=== PATIENT | female | born 1965 | race Caucasian/White ===

== ENCOUNTER 2016-05-23 15:13 | Emergency (ER) | payer OTHER ==
[~2016-05-23] VITALS: Ht 165.1 cm; Wt 75.0 kg
[~2016-05-23 15:13] MED LIST: GABAPENTIN; SEROQUEL; TRAMADOL; TRAZODONE; XANAX
[2016-05-23 20:30] VITALS: BP 102/61
[2016-05-23 20:42] LABS: BASOPHILS % 1.2 % (0.0-2.0); HEMATOCRIT. 43.9 % (36.0-48.0); HEMOGLOBIN. 14.9 g/dL (12.0-16.0); LYMPHOCYTES % 26.2 % (20.0-50.0); MEAN CORPUSCULAR HEMOGLOBIN 33.4 pg (28.0-32.0); MEAN CORPUSCULAR VOLUME 98.4 fL (81.0-99.0); MONOCYTES % 10.5 % (2.0-8.0); NEUTROPHILS % 59.1 % (40.0-76.0); PLATELET 373 x1000/uL (130-400); RED BLOOD CELL COUNT 4.46 mill/uL (4.2-5.4); RED CELL DISTRIBUTION WIDTH 15.1 % (11.6-14.6); WHITE BLOOD COUNT 7.7 x1000/uL (4.5-11.0)
[2016-05-23 20:47] LABS: CHLORIDE 108 mEq/L (98-107); INDEX HEMOLYSI 1 (1-3); INDEX ICTERIC 1 (1-4); INDEX LIPEMIC 1 (1-3)
[2016-05-23 20:50] LABS: ALBUMIN 3.5 g/dL (3.4-5.0); ANION GAP 9; CARBON DIOXIDE 28 mEq/L (21-32); UREA NITROGEN BLOOD 11 mg/dL (7-21)
[2016-05-23 20:54] LABS: ALANINE AMINOTRANSFERASE 14 IU/L (13-61); eGFR > 60 mL/min (>60)
== END 2016-05-23 22:25 | disposition home or self-care (01) ==
LOC: ER 16:55
DX: F33.3 Major depressive disorder, recurrent, severe with psychotic symptoms (principal); I69.354 Hemiplegia and hemiparesis following cerebral infarction affecting left non-dominant side; Z86.79 Personal history of other diseases of the circulatory system; F17.210 Nicotine dependence, cigarettes, uncomplicated; M79.7 Fibromyalgia; F41.9 Anxiety disorder, unspecified
CPT/HCPCS: 36415; 80053; 81025; 85025; 99284; G0482

== ENCOUNTER 2016-07-06 18:12 | Emergency (ER) | payer OTHER | END 2016-07-06 19:00 | disposition left against medical advice (07) | LOC: ER 18:16 | DX: M79.673 Pain in unspecified foot (principal); Z53.21 Procedure and treatment not carried out due to patient leaving prior to being seen by health care provider ==

== ENCOUNTER 2016-07-26 16:01 | Emergency (ER) | payer OTHER ==
[~2016-07-26] VITALS: Ht 162.6 cm; Wt 80.0 kg
[2016-07-26] MEDS ORDERED: PREGABALIN 50 MG CAPSULE PO STA (16:37)
[2016-07-26] MEDS ORDERED: PREGABALIN 25MG CAPSULE PO ONE (16:45)
[2016-07-26 17:05] LABS: BASOPHILS % 0.4 % (0.0-2.0); EOSINOPHILS % 1.5 % (0.0-5.0); HEMATOCRIT. 43.3 % (36.0-48.0); HEMOGLOBIN. 14.9 g/dL (12.0-16.0); LYMPHOCYTES % 15.2 % (20.0-50.0); MEAN CORPUSCULAR HEMOGLOBIN 32.8 pg (28.0-32.0); MEAN CORPUSCULAR HGB CONC 34.5 g/dL (31.0-37.0); MEAN CORPUSCULAR VOLUME 94.9 fL (81.0-99.0); MONOCYTES % 9.3 % (2.0-8.0); NEUTROPHILS % 73.6 % (40.0-76.0); PLATELET 330 x1000/uL (130-400); RED BLOOD CELL COUNT 4.56 mill/uL (4.2-5.4); RED CELL DISTRIBUTION WIDTH 15.6 % (11.6-14.6); WHITE BLOOD COUNT 8.3 x1000/uL (4.5-11.0)
[2016-07-26 17:07] LABS: PROTHROMBIN TIME 10.6 sec
[2016-07-26 17:10] LABS: ANION GAP 15; CALCIUM 8.7 mg/dL (8.5-10.1); CARBON DIOXIDE 25 mEq/L (21-32); CHLORIDE 107 mEq/L (98-107); INDEX HEMOLYSI 1 (1-3); INDEX ICTERIC 1 (1-4); INDEX LIPEMIC 1 (1-3); UREA NITROGEN BLOOD 12 mg/dL (7-21); eGFR > 60 mL/min (>60)
[2016-07-26 21:00] VITALS: BP 106/58
== END 2016-07-26 21:05 | disposition home or self-care (01) ==
LOC: ER 16:02
DX: S70.02XA Contusion of left hip, initial encounter (principal); R10.30 Lower abdominal pain, unspecified; R03.0 Elevated blood-pressure reading, without diagnosis of hypertension; W01.0XXA Fall on same level from slipping, tripping and stumbling without subsequent striking against object, initial encounter; Y93.89 Activity, other specified; I69.354 Hemiplegia and hemiparesis following cerebral infarction affecting left non-dominant side; Y92.89 Other specified places as the place of occurrence of the external cause; M79.7 Fibromyalgia
CPT/HCPCS: 36415; 51702; 73502; 80048; 85025; 85610; 99285; A4315

== ENCOUNTER 2016-08-06 10:20 | Emergency (ER) | payer OTHER ==
[~2016-08-06] VITALS: Ht 162.6 cm; Wt 91.0 kg
[2016-08-06 11:54] LABS: BASOPHILS % 0.5 % (0.0-2.0); EOSINOPHILS % 0.7 % (0.0-5.0); HEMATOCRIT. 44.4 % (36.0-48.0); HEMOGLOBIN. 15.4 g/dL (12.0-16.0); LYMPHOCYTES % 12.9 % (20.0-50.0); MEAN CORPUSCULAR HGB CONC 34.6 g/dL (31.0-37.0); MEAN CORPUSCULAR VOLUME 95.5 fL (81.0-99.0); MEAN PLATELET VOLUME 7.3 fl (7.4-10.4); MONOCYTES % 9.6 % (2.0-8.0); NEUTROPHILS % 76.3 % (40.0-76.0); PLATELET 347 x1000/uL (130-400); RED BLOOD CELL COUNT 4.65 mill/uL (4.2-5.4); RED CELL DISTRIBUTION WIDTH 15.8 % (11.6-14.6); WHITE BLOOD COUNT 7.4 x1000/uL (4.5-11.0)
[2016-08-06 12:03] LABS: PARTIAL THROMBOPLASTIN TIME 28.8 sec (24.0-34.0); PROTHROMBIN TIME 10.8 sec
[2016-08-06 12:05] LABS: ALANINE AMINOTRANSFERASE 20 IU/L (13-61); ALBUMIN 3.4 g/dL (3.4-5.0); ANION GAP 11; CALCIUM 8.5 mg/dL (8.5-10.1); CARBON DIOXIDE 27 mEq/L (21-32); CHLORIDE 108 mEq/L (98-107); ETHANOL BLOOD < 10 mg/dL; INDEX HEMOLYSI 1 (1-3); INDEX ICTERIC 1 (1-4); INDEX LIPEMIC 1 (1-3); LIPASE 77 IU/L (73-393); UREA NITROGEN BLOOD 12 mg/dL (7-21)
[2016-08-06 12:10] LABS: TROPONIN I < 0.02 ng/mL (0.00-0.04); eGFR > 60 mL/min (>60)
[2016-08-06] MEDS ORDERED: KETOROLAC 60MG/2ML VIAL IM ONE (14:30)
[2016-08-06] MEDS ORDERED: PREGABALIN 50 MG CAPSULE PO SCH (15:15)
[2016-08-06 15:20] VITALS: BP 128/72
== END 2016-08-06 16:27 | disposition home or self-care (01) ==
LOC: ER 10:21
DX: R07.9 Chest pain, unspecified (principal); I50.9 Heart failure, unspecified; F17.210 Nicotine dependence, cigarettes, uncomplicated; Z79.1 Long term (current) use of non-steroidal anti-inflammatories (NSAID); Z79.899 Other long term (current) drug therapy; Z86.73 Personal history of transient ischemic attack (TIA), and cerebral infarction without residual deficits
CPT/HCPCS: 36415; 71010; 80053; 80301; 83690; 84484; 85025; 85610; 85730; 93005; 96372; 99285; G0482; J1885; Z7610

== ENCOUNTER 2016-08-10 16:49 | Emergency (ER) | payer OTHER | END 2016-08-10 18:36 | disposition left against medical advice (07) | LOC: ER 18:23 | DX: M25.559 Pain in unspecified hip (principal); Z53.21 Procedure and treatment not carried out due to patient leaving prior to being seen by health care provider ==

== ENCOUNTER 2017-04-06 21:13 | Observation (INO) | payer OTHER, MEDICAID ==
[~2017-04-06] VITALS: Ht 162.6 cm; Wt 68.0 kg
[2017-04-06] MEDS ORDERED: SODIUM CHLORIDE 0.9% 1,000 ML IV ONE (22:57)
[2017-04-06 23:35] LABS: BASOPHILS % 0.3 % (0.0-2.0); EOSINOPHILS % 0.1 % (0.0-5.0); HEMATOCRIT. 47.4 % (36.0-48.0); HEMOGLOBIN. 16.3 g/dL (12.0-16.0); LYMPHOCYTES % 8.7 % (20.0-50.0); MEAN CORPUSCULAR HEMOGLOBIN 32.8 pg (28.0-32.0); MEAN CORPUSCULAR VOLUME 95.4 fL (81.0-99.0); MEAN PLATELET VOLUME 7.3 fl (7.4-10.4); MONOCYTES % 5.2 % (2.0-8.0); NEUTROPHILS % 85.7 % (40.0-76.0); PLATELET 400 x1000/uL (130-400); RED BLOOD CELL COUNT 4.97 mill/uL (4.2-5.4); RED CELL DISTRIBUTION WIDTH 13.3 % (11.6-14.6)
[2017-04-06 23:53] LABS: CHLORIDE 107 mEq/L (98-107); ETHANOL BLOOD < 10 mg/dL
[2017-04-07 01:04] LABS: CLARITY URINE CLEAR (CLEAR); COLOR URINE YELLOW (YELLOW); KETONES URINE NEGATIVE (NEGATIVE); LEUKOCYTE ESTERASE URINE 1+ (NEGATIVE); NITRITE URINE POSITIVE (NEGATIVE); OCCULT BLOOD URINE NEGATIVE (NEGATIVE); PH URINE 6.5 (4.5-8.0); PROTEIN URINE NEGATIVE (NEGATIVE); SPECIFIC GRAVITY URINE 1.023 (1.005-1.030); UROBILINOGEN URINE 0.2 E.U./dL (0.2-1.0)
[2017-04-07 01:24] LABS: *AMPHETAMINES SCREEN URINE NEGATIVE (NEGATIVE); *COCAINE SCREEN URINE PRESUMTIVE POSITIVE (NEGATIVE); CANNABINOID URINE SCREEN PRESUMTIVE POSITIVE (NEGATIVE); METHADONE URINE SCREEN NEGATIVE (NEGATIVE); OPIATES URINE SCREEN PRESUMTIVE POSITIVE (NEGATIVE); PHENCYCLIDINE URINE SCREEN NEGATIVE (NEGATIVE)
[2017-04-07 01:37] LABS: *BENZODIAZEPINES SCREEN URINE NEGATIVE (NEGATIVE)
[2017-04-07 01:51] LABS: *BARBITURATES SCREEN URINE NEGATIVE (NEGATIVE)
[2017-04-07] MEDS ORDERED: SODIUM CHLORIDE 0.9% 1,000 ML IV SCH (02:23)
[2017-04-07 03:40] VITALS: BP 103/66
[2017-04-07] MEDS: DEXT 5%/0.9% NACL 1,000 ML IV SCH ×2 (05:53→15:41)
[2017-04-07 08:00] VITALS: BP 109/70
[2017-04-07] MEDS ORDERED: ENOXAPARIN 40MG/0.4ML SYR SUBCUT SCH (09:00)
[2017-04-07 09:06] LABS: CREATINE KINASE 68 IU/L (26-192); CREATINE KINASE MB FRACTION 1.3 ng/mL (0.5-3.6); TROPONIN I < 0.02 ng/mL (0.00-0.04)
[2017-04-07 12:00] VITALS: BP 86/53
[2017-04-07] MEDS ORDERED: PREGABALIN 75MG CAPSULE PO SCH (15:15)
[2017-04-07 16:00] VITALS: BP 104/65
[2017-04-07 17:41] VITALS: BP 104/65
[2017-04-07 17:49] LABS: CREATINE KINASE 61 IU/L (26-192); CREATINE KINASE MB FRACTION 0.6 ng/mL (0.5-3.6); TROPONIN I < 0.02 ng/mL (0.00-0.04)
== END 2017-04-07 20:17 ==
LOC: ER 21:28 → EDBEDREQ 04-07 01:30 → ENRESERV 04-07 02:19 → 7WST 04-07 02:27 → INTOOBSV 04-07 02:27 → EDBEDREQTM 04-07 02:40 → EDBEDREQDT 04-07 02:40 → EDBEDREQ 04-07 02:40
PROVIDERS: ADMIT Internal Medicine; ATTEND Internal Medicine
DX: R53.1 Weakness (principal); F32.9 Major depressive disorder, single episode, unspecified; N39.0 Urinary tract infection, site not specified; F19.10 Other psychoactive substance abuse, uncomplicated; G47.00 Insomnia, unspecified; Z86.73 Personal history of transient ischemic attack (TIA), and cerebral infarction without residual deficits; E78.00 Pure hypercholesterolemia, unspecified; E03.9 Hypothyroidism, unspecified; F17.200 Nicotine dependence, unspecified, uncomplicated
CPT/HCPCS: 36415; 51702; 70450; 70551; 71045; 72141; 80053; 80305; 81001; 82550; 82553; 84484; 85025; 93005; 96360; 96361; 99291; G0378; G0482; J7030; J7042; A4315

== ENCOUNTER 2017-09-25 18:24 | Emergency (ER) | payer OTHER, MEDICAID ==
[~2017-09-25] VITALS: Ht 162.6 cm; Wt 80.0 kg
[~2017-09-25 18:24] MED LIST changes: +AM10 PO; +ASPI-1160 PO; +ATOR10TA PO; +BUPR100T4 PO; +FURO-152 PO; +LEVO25TA7 PO; +LOSA25TA12 PO; +METR250T PO; +OLAN5TAB26 PO; +PREG50CA PO
[2017-09-25] MEDS ORDERED: DIAZEPAM 5 MG TABLET PO ONE (21:15)
[2017-09-25] MEDS ORDERED: KETOROLAC 60MG/2ML VIAL IM ONE (21:15)
[2017-09-25 23:56] VITALS: BP 106/60
== END 2017-09-25 23:57 | disposition home or self-care (01) ==
LOC: ER 18:24
DX: M43.6 Torticollis (principal); I10 Essential (primary) hypertension; E78.00 Pure hypercholesterolemia, unspecified; E03.9 Hypothyroidism, unspecified; F12.10 Cannabis abuse, uncomplicated; Z86.73 Personal history of transient ischemic attack (TIA), and cerebral infarction without residual deficits; Z79.82 Long term (current) use of aspirin
CPT/HCPCS: 72125; 96372; 99284; J1885

== ENCOUNTER 2022-06-02 08:00 | Inpatient (IN) | payer BC, MEDICAID ==
[~2022-06-02] VITALS: Ht 152.4 cm; Wt 101.2 kg
[~2022-06-02 08:00] MED LIST changes: -AM10 PO; +AMIT10TA7 PO; -LOSA25TA12 PO; +LOSA25TA26 PO; -OLAN5TAB26 PO; +OLAN5TAB74 PO
[2022-06-02 09:07] LABS: BASOPHILS % 0.6 % (0.0-2.0); EOSINOPHILS % 1.6 % (0.0-5.0); HEMATOCRIT. 50.4 % (36.0-48.0); HEMOGLOBIN. 17.3 g/dL (12.0-16.0); LYMPHOCYTES % 18.2 % (20.0-50.0); MEAN CORPUSCULAR HEMOGLOBIN 31.6 pg (28.0-32.0); MEAN PLATELET VOLUME 7.4 fl (7.4-10.4); MONOCYTES % 11.7 % (2.0-8.0); NEUTROPHILS % 67.9 % (40.0-76.0); PLATELET 487 x1000/uL (130-400); RED BLOOD CELL COUNT 5.48 mill/uL (4.2-5.4)
[2022-06-02 09:17] LABS: CHLORIDE 105 mEq/L (98-107)
[2022-06-02 09:21] LABS: D-DIMER 0.2 mg/L FEU (<0.50); PARTIAL THROMBOPLASTIN TIME 34.4 sec (23.4-31.0); PROTHROMBIN TIME 10.9 sec (9.6-11.0)
[2022-06-02] MEDS ORDERED: ACETAMINOPHEN 325MG TABLET PO NR (10:00)
[2022-06-02] MEDS ORDERED: SODIUM CHLORIDE 0.9% 1,000 ML IV ONE (10:00)
[2022-06-02] MEDS ORDERED: MORPHINE SULFATE 2 MG/ML CPJ (NOT FOR IM USE) IV NR (10:15)
[2022-06-02] MEDS ORDERED: IPRATROPIUM/ALBUTEROL 0.5-3(2.5)MG/3ML NEB HHN PRN (13:45)
[2022-06-02] MEDS ORDERED: ACETAMINOPHEN 325MG TABLET PO PRN (13:45)
[2022-06-02] MEDS ORDERED: CLONIDINE 0.1MG TABLET PO PRN (13:45)
[2022-06-02] MEDS ORDERED: ONDANSETRON HCL 4MG/2ML INJ IV PRN (13:45)
[2022-06-02] MEDS ORDERED: DIPHENHYDRAMINE 50MG/ML VIAL IV PRN (13:45)
[2022-06-02] MEDS: SODIUM CHLORIDE 0.9% 1,000 ML IV SCH (13:45)
[2022-06-02 14:14] LABS: CLARITY URINE CLEAR (CLEAR); COLOR URINE YELLOW (YELLOW); KETONES URINE 3+ (NEGATIVE); LEUKOCYTE ESTERASE URINE TRACE (NEGATIVE); NITRITE URINE POSITIVE (NEGATIVE); OCCULT BLOOD URINE NEGATIVE (NEGATIVE); PH URINE 7.5 (4.5-8.0); PROTEIN URINE NEGATIVE (NEGATIVE); SPECIFIC GRAVITY URINE 1.015 (1.005-1.030)
[2022-06-02 14:20] VITALS: BP 140/86
[2022-06-02 14:39] LABS: *AMPHETAMINES SCREEN URINE NEGATIVE (NEGATIVE); *BARBITURATES SCREEN URINE NEGATIVE (NEGATIVE); *BENZODIAZEPINES SCREEN URINE NEGATIVE (NEGATIVE); *COCAINE SCREEN URINE NEGATIVE (NEGATIVE); CANNABINOID URINE SCREEN NEGATIVE (NEGATIVE); METHADONE URINE SCREEN NEGATIVE (NEGATIVE); OPIATES URINE SCREEN PRESUMTIVE POSITIVE (NEGATIVE); PHENCYCLIDINE URINE SCREEN NEGATIVE (NEGATIVE)
[2022-06-02] MEDS: MORPHINE SULFATE 2 MG/ML CPJ (NOT FOR IM USE) IV PRN ×3 (16:01→23:58)
[2022-06-02] MEDS ORDERED: ALBUTEROL (0.083%) 2.5MG/3ML NEB HHN PRN (16:30)
[2022-06-02] MEDS ORDERED: IPRATROPIUM BROMIDE (0.02%) 0.5MG/2.5ML NEB HHN PRN (16:30)
[2022-06-02] MEDS ORDERED: TRAZ-251 MT (17:07)
[2022-06-02] MEDS ORDERED: LEVO25TA7 MT (17:07)
[2022-06-02] MEDS ORDERED: RIVA10TA MT (17:07)
[2022-06-02 17:27] VITALS: BP 140/86
[2022-06-02] MEDS ORDERED: CEFTRIAXONE 1GM PREMIX 50 ML IV SCH (18:00)
[2022-06-02] MEDS: CEFTRIAXONE 1GM PREMIX 50 ML IV SCH (18:35)
[2022-06-02 20:00] VITALS: BP 123/69
[2022-06-02] MEDS: ENOXAPARIN 30MG/0.3ML SYR SUBCUT SCH (20:08)
[2022-06-03 00:13] VITALS: BP 126/96
[2022-06-03] MEDS: MORPHINE SULFATE 2 MG/ML CPJ (NOT FOR IM USE) IV PRN ×4 (04:27→20:57)
[2022-06-03 04:30] VITALS: BP 124/69
[2022-06-03 07:53] VITALS: BP 129/75
[2022-06-03] MEDS: ENOXAPARIN 30MG/0.3ML SYR SUBCUT SCH ×2 (09:41→20:48)
[2022-06-03] MEDS: SODIUM CHLORIDE 0.9% 1,000 ML IV SCH ×3 (11:21→20:49)
[2022-06-03 11:43] VITALS: BP 111/76
[2022-06-03 13:39] LABS: CHLORIDE 107 mEq/L (98-107)
[2022-06-03 13:46] LABS: AMYLASE 51 IU/L (25-115)
[2022-06-03 16:05] VITALS: BP 135/82
[2022-06-03] MEDS: CEFTRIAXONE 1GM PREMIX 50 ML IV SCH (17:59)
[2022-06-03] MEDS ORDERED: NALOXONE HCL 0.4MG/ML VIAL IV PRN (18:00)
[2022-06-03 20:30] VITALS: BP 110/82
[2022-06-03] MEDS ORDERED: IPRATROPIUM/ALBUTEROL 0.5-3(2.5)MG/3ML NEB HHN SCH (22:00)
[2022-06-04] VITALS: BP 147/80
[2022-06-04] MEDS: MORPHINE SULFATE 2 MG/ML CPJ (NOT FOR IM USE) IV PRN ×5 (00:52→21:37)
[2022-06-04 04:00] VITALS: BP 125/75
[2022-06-04] MEDS: SODIUM CHLORIDE 0.9% 1,000 ML IV SCH ×2 (05:45→15:45)
[2022-06-04 05:48] LABS: BASOPHILS % 0.6 % (0.0-2.0); EOSINOPHILS % 2.8 % (0.0-5.0); HEMATOCRIT. 46.9 % (36.0-48.0); HEMOGLOBIN. 16.1 g/dL (12.0-16.0); LYMPHOCYTES % 21.5 % (20.0-50.0); MEAN CORPUSCULAR HEMOGLOBIN 31.9 pg (28.0-32.0); MEAN CORPUSCULAR VOLUME 92.7 fL (81.0-99.0); MEAN PLATELET VOLUME 7.8 fl (7.4-10.4); MONOCYTES % 14.5 % (2.0-8.0); NEUTROPHILS % 60.6 % (40.0-76.0); PLATELET 353 x1000/uL (130-400); RED BLOOD CELL COUNT 5.06 mill/uL (4.2-5.4); RED CELL DISTRIBUTION WIDTH 13.2 % (11.6-14.6)
[2022-06-04 08:00] VITALS: BP 135/76
[2022-06-04] MEDS: ENOXAPARIN 30MG/0.3ML SYR SUBCUT SCH ×2 (09:00→20:45)
[2022-06-04 12:00] VITALS: BP 130/75
[2022-06-04] MEDS ORDERED: LACTULOSE 20G/30ML UDC PO NR (14:00)
[2022-06-04 16:00] VITALS: BP 132/75
[2022-06-04] MEDS: DOCUSATE SODIUM 250MG CAPSULE PO SCH ×2 (17:25→17:27)
[2022-06-04] MEDS ORDERED: CEFTRIAXONE 1GM PREMIX 50 ML IV SCH (18:00)
[2022-06-04 20:00] VITALS: BP 141/83
[2022-06-04] MEDS: CEFTRIAXONE 1GM PREMIX 50 ML IV SCH (20:45)
[2022-06-05] VITALS: BP 152/97
[2022-06-05] MEDS: MORPHINE SULFATE 2 MG/ML CPJ (NOT FOR IM USE) IV PRN ×5 (01:30→21:45)
[2022-06-05] MEDS: SODIUM CHLORIDE 0.9% 1,000 ML IV SCH ×3 (02:39→21:45)
[2022-06-05 04:05] VITALS: BP 143/83
[2022-06-05 07:01] LABS: HEMATOCRIT. 46.5 % (36.0-48.0); MEAN CORPUSCULAR HEMOGLOBIN 31.5 pg (28.0-32.0); MEAN CORPUSCULAR VOLUME 91.9 fL (81.0-99.0); MEAN PLATELET VOLUME 7.8 fl (7.4-10.4); PLATELET 351 x1000/uL (130-400); RED BLOOD CELL COUNT 5.06 mill/uL (4.2-5.4); RED CELL DISTRIBUTION WIDTH 13.4 % (11.6-14.6)
[2022-06-05 07:52] LABS: CHLORIDE 107 mEq/L (98-107)
[2022-06-05 08:00] VITALS: BP 142/77
[2022-06-05] MEDS: POLYETHYLENE GLYCOL 3350 (17GM) 1 DOSE PACK PO SCH (08:48)
[2022-06-05] MEDS: DOCUSATE SODIUM 250MG CAPSULE PO SCH ×2 (08:48→16:14)
[2022-06-05] MEDS: ENOXAPARIN 30MG/0.3ML SYR SUBCUT SCH ×2 (08:49→21:46)
[2022-06-05 12:00] VITALS: BP 120/78
[2022-06-05 12:38] LABS: PLATELET ESTIMATE NORMAL
[2022-06-05 16:00] VITALS: BP 144/84
[2022-06-05 20:00] VITALS: BP 139/88
[2022-06-05] MEDS ORDERED: ALBUTEROL (0.083%) 2.5MG/3ML NEB HHN SCH (22:00)
[2022-06-05] MEDS ORDERED: IPRATROPIUM BROMIDE (0.02%) 0.5MG/2.5ML NEB HHN SCH (22:00)
[2022-06-05] MEDS: CEFTRIAXONE 1GM PREMIX 50 ML IV SCH (22:11)
[2022-06-06] VITALS: BP 148/82
[2022-06-06] MEDS: MORPHINE SULFATE 2 MG/ML CPJ (NOT FOR IM USE) IV PRN ×4 (01:33→16:41)
[2022-06-06 04:00] VITALS: BP 145/66
[2022-06-06 08:00] VITALS: BP 134/79
[2022-06-06] MEDS: DOCUSATE SODIUM 250MG CAPSULE PO SCH ×2 (09:49→16:41)
[2022-06-06] MEDS: SODIUM CHLORIDE 0.9% 1,000 ML IV SCH ×2 (09:49→16:41)
[2022-06-06] MEDS: POLYETHYLENE GLYCOL 3350 (17GM) 1 DOSE PACK PO SCH (09:50)
[2022-06-06] MEDS: ENOXAPARIN 30MG/0.3ML SYR SUBCUT SCH ×2 (09:50→21:02)
[2022-06-06 12:00] VITALS: BP 131/78
[2022-06-06] MEDS ORDERED: POTASSIUM CHLORIDE 20MEQ/PACKET PO NR (12:15)
[2022-06-06 16:00] VITALS: BP 124/68
[2022-06-06 20:00] VITALS: BP 138/76
[2022-06-07] MEDS: SODIUM CHLORIDE 0.9% 1,000 ML IV SCH ×3 (03:45→15:04)
[2022-06-07 04:00] VITALS: BP 119/65
[2022-06-07] MEDS: MORPHINE SULFATE 2 MG/ML CPJ (NOT FOR IM USE) IV PRN ×2 (05:27→10:35)
[2022-06-07] MEDS: POLYETHYLENE GLYCOL 3350 (17GM) 1 DOSE PACK PO SCH ×2 (09:00→10:34)
[2022-06-07] MEDS: DOCUSATE SODIUM 250MG CAPSULE PO SCH ×2 (09:00→17:00)
[2022-06-07] MEDS: ENOXAPARIN 30MG/0.3ML SYR SUBCUT SCH ×2 (10:34→20:15)
[2022-06-07 12:00] VITALS: BP 138/80
[2022-06-07] MEDS: HYDROCODONE/ACETAMINOPHEN 5/325MG TABLET PO PRN ×2 (15:13→20:40)
[2022-06-07 16:00] VITALS: BP 130/75
[2022-06-07 20:00] VITALS: BP 132/74
[2022-06-08] MEDS: SODIUM CHLORIDE 0.9% 1,000 ML IV SCH ×2 (01:19→10:48)
[2022-06-08] MEDS: HYDROCODONE/ACETAMINOPHEN 5/325MG TABLET PO PRN ×3 (02:35→20:13)
[2022-06-08 04:00] VITALS: BP 124/87
[2022-06-08 08:00] VITALS: BP 129/90
[2022-06-08] MEDS: POLYETHYLENE GLYCOL 3350 (17GM) 1 DOSE PACK PO SCH (09:00)
[2022-06-08] MEDS: DOCUSATE SODIUM 250MG CAPSULE PO SCH (09:00)
[2022-06-08] MEDS: ENOXAPARIN 30MG/0.3ML SYR SUBCUT SCH ×2 (10:44→20:13)
[2022-06-08 12:00] VITALS: BP 131/89
[2022-06-08 16:00] VITALS: BP 132/79
[2022-06-09] MEDS: SODIUM CHLORIDE 0.9% 1,000 ML IV SCH ×2 (05:13→10:27)
[2022-06-09 08:00] VITALS: BP 138/85
[2022-06-09] MEDS: ENOXAPARIN 30MG/0.3ML SYR SUBCUT SCH (10:26)
[2022-06-09] MEDS: HYDROCODONE/ACETAMINOPHEN 5/325MG TABLET PO PRN (10:33)
[2022-06-09 12:00] VITALS: BP 124/73
[2022-06-09] MEDS ORDERED: NALOXONE HCL 0.4MG/ML VIAL IV PRN (17:00)
== END 2022-06-09 17:55 | disposition home or self-care (01) | DRG 438 ==
LOC: ER 08:00 → EDBEDREQSVC 12:45 → EDBEDREQTM 12:45 → EDBEDREQ 12:45 → 7WST 13:50
PROVIDERS: ADMIT Internal Medicine; ATTEND Internal Medicine
DX: K85.90 Acute pancreatitis without necrosis or infection, unspecified (principal); J96.00 Acute respiratory failure, unspecified whether with hypoxia or hypercapnia; I69.354 Hemiplegia and hemiparesis following cerebral infarction affecting left non-dominant side; N39.0 Urinary tract infection, site not specified; I82.502 Chronic embolism and thrombosis of unspecified deep veins of left lower extremity; E03.9 Hypothyroidism, unspecified; J44.9 Chronic obstructive pulmonary disease, unspecified; M79.7 Fibromyalgia; K86.89 Other specified diseases of pancreas; M48.02 Spinal stenosis, cervical region; E78.00 Pure hypercholesterolemia, unspecified; F17.210 Nicotine dependence, cigarettes, uncomplicated; F10.10 Alcohol abuse, uncomplicated; H66.90 Otitis media, unspecified, unspecified ear; K76.0 Fatty (change of) liver, not elsewhere classified; I10 Essential (primary) hypertension; I73.9 Peripheral vascular disease, unspecified; K80.20 Calculus of gallbladder without cholecystitis without obstruction; G57.93 Unspecified mononeuropathy of bilateral lower limbs
CPT/HCPCS: 36415; 71045; 76700; 80048; 80053; 80305; 81003; 82150; 83880; 84478; 85025; 85044; 85379; 86301; 93923; 93970; 97162; 97166; 97530; 99285; C1893; J0696; J1650; J2270